=== PATIENT | male | born 1985 | race Two or more races ===

== ENCOUNTER 2023-06-05 19:18 | Inpatient (IN) | payer OTHER ==
[~2023-06-05] VITALS: Ht 170.2 cm; Wt 108.8 kg
[2023-06-05] MEDS ORDERED: VANCOMYCIN 1GM/250ML 250 ML IV ONE (19:45)
[2023-06-05 22:29] LABS: Basophils # (auto) 0 10 ^3/uL (0-0.2); Basophils % (auto) 0.3 % (0.0-2.0); Eosinophils # (auto) 0 10 ^3/uL (0-0.8); Eosinophils % (auto) 0.2 % (0.0-7.0); Hematocrit 48.8 % (41.0-53.0); Hemoglobin 16.4 g/dL (13.5-17.5); Lymphocytes # (auto) 2.1 10 ^3/uL (0.4-5.4); Lymphocytes % (auto) 22.2 % (10.0-50.0); Mean Corpuscular Hemoglobin 30.7 pg (28.0-32.0); Mean Corpuscular Hgb Conc. 33.6 g/dL (32.0-36.0); Mean Corpuscular Volume 91.2 fL (80.0-100.0); Monocytes # (auto) 0.8 10 ^3/uL (0-1.3); Monocytes % (auto) 8.3 % (0.0-12.0); Neutrophils # (auto) 6.6 10 ^3/uL (1.6-8.6); Nucleated Red Blood Cells % 0.1 %; Red Blood Cells 5.34 10^6/uL (4.5-5.90); Red Cell Distribution Width 13.6 % (11.8-14.3); White Blood Cell 9.6 10^3/uL (4.4-10.8)
[2023-06-05 22:51] LABS: Alanine Aminotransferase 33 U/L (7-40); Alkaline Phosphatase 81 U/L (46-116); Aspartate Aminotransferase 28 U/L (13-40); BUN/Creatinine Ratio 14.4 (10.0-20.0); Bilirubin, Total 0.9 mg/dL (0.2-1.0); Blood Urea Nitrogen 17 mg/dL (9-23); Calcium 9.5 mg/dL (8.7-10.4); Chloride 103 mmol/L (98-107); Glucose 104 mg/dL (74-106); Potassium 3.9 mmol/L (3.5-5.1); Sodium 135 mmol/L (136-145); Total Protein 8.3 g/dL (5.7-8.2)
[2023-06-05 22:57] LABS: Anion Gap 11 (5-15); Carbon Dioxide 21 mmol/L (20-30)
[2023-06-05] MEDS ORDERED: HYDROcodone-ACET 5/325MG TAB PO ONE (23:15)
[2023-06-06 01:10] VITALS: PULSE 96; RESP 12; O2SAT 96
[2023-06-06] MEDS ORDERED: ONDANSETRON HCL 4 MG/2 ML VIAL IV ONE (01:30)
[2023-06-06] MEDS ORDERED: MORPHINE SULFATE 4 MG/ML SYR/VIAL IV ONE (01:30)
[2023-06-06] MEDS: HYDROmorphone HCL 2 MG/ML VL/or syr IV PRN ×2 (04:26→21:50)
[2023-06-06 04:45] LABS: Basophils # (auto) 0 10 ^3/uL (0-0.2); Basophils % (auto) 0.3 % (0.0-2.0); Eosinophils # (auto) 0 10 ^3/uL (0-0.8); Eosinophils % (auto) 0.5 % (0.0-7.0); Hemoglobin 13.9 g/dL (13.5-17.5); Lymphocytes # (auto) 2.4 10 ^3/uL (0.4-5.4); Lymphocytes % (auto) 30.8 % (10.0-50.0); Mean Corpuscular Hemoglobin 31.3 pg (28.0-32.0); Mean Corpuscular Hgb Conc. 34.6 g/dL (32.0-36.0); Mean Corpuscular Volume 90.3 fL (80.0-100.0); Monocytes # (auto) 0.8 10 ^3/uL (0-1.3); Monocytes % (auto) 10.7 % (0.0-12.0); Neutrophils # (auto) 4.4 10 ^3/uL (1.6-8.6); Neutrophils % (auto) 57.7 % (37.0-80.0); Nucleated Red Blood Cells % 0.1 %; Red Blood Cells 4.43 10^6/uL (4.5-5.90); Red Cell Distribution Width 13.4 % (11.8-14.3); White Blood Cell 7.7 10^3/uL (4.4-10.8)
[2023-06-06] MEDS: PIPERACILLIN-TAZOB 3.375GM 100 ML IV SCH ×3 (05:46→21:40)
[2023-06-06] MEDS: ENOXAPARIN SOD 40 MG/0.4 ML SYRINGE SC SCH (11:24)
[2023-06-06] MEDS: PANTOPRAZOLE 40 MG TAB PO SCH ×2 (11:24→21:40)
[2023-06-06] MEDS ORDERED: VANCOMYCIN PER PHARMACY 0 MG IV SCH (17:15)
[2023-06-06] MEDS ORDERED: VANCOMYCIN 1GM/250ML 250 ML IV ONE (17:15)
[2023-06-06 20:47] LABS: Erythrocyte Sedimentation Rate 21 mm/hr (0-20)
[2023-06-06] MEDS: methylPREDNISolone SOD SUCC 40 MG/ML VL IV SCH (21:47)
[2023-06-07] VITALS: BP 124/79; PULSE 70; RESP 18; TEMP 97.6; O2SAT 98
[2023-06-07 05:00] VITALS: BP 114/69; PULSE 72; RESP 18; TEMP 98.3; O2SAT 96
[2023-06-07] MEDS ORDERED: VANCOMYCIN 1GM/250ML 250 ML IV ONE (05:00)
[2023-06-07] MEDS: PIPERACILLIN-TAZOB 3.375GM 100 ML IV SCH ×3 (06:24→23:00)
[2023-06-07] MEDS: methylPREDNISolone SOD SUCC 40 MG/ML VL IV SCH ×3 (06:24→23:00)
[2023-06-07 08:00] VITALS: BP 132/81; PULSE 71; RESP 20; TEMP 98; O2SAT 95
[2023-06-07] MEDS: ENOXAPARIN SOD 40 MG/0.4 ML SYRINGE SC SCH (09:21)
[2023-06-07] MEDS: PANTOPRAZOLE 40 MG TAB PO SCH ×2 (09:21→22:20)
[2023-06-07 13:03] VITALS: BP 118/78; PULSE 77; RESP 20; TEMP 98.3; O2SAT 92
[2023-06-07] MEDS ORDERED: BUPRENORPHINE -NALOXONE 8-2mg SL TAB SL ONE (14:30)
[2023-06-07] MEDS ORDERED: VANCOMYCIN 1GM/250ML 250 ML IV SCH (15:00)
[2023-06-07 16:00] VITALS: BP 126/82; PULSE 64; RESP 20; TEMP 98.4; O2SAT 98
[2023-06-07] MEDS: VANCOMYCIN 1GM/250ML 250 ML IV SCH (16:16)
[2023-06-08] VITALS (7 sets, daily range): BP systolic 102–133; BP diastolic 46–74; PULSE 57–87; RESP 14–18; TEMP 97.8–98.2; O2SAT 93–97
[2023-06-08 01:22] LABS: Chloride 106 mmol/L (98-107); Potassium 4.4 mmol/L (3.5-5.1); Sodium 137 mmol/L (136-145)
[2023-06-08 01:23] LABS: Anion Gap 8 (5-15); Calcium 9.1 mg/dL (8.7-10.4); Carbon Dioxide 23 mmol/L (20-30)
[2023-06-08 01:28] LABS: Blood Urea Nitrogen 13 mg/dL (9-23); Glucose 138 mg/dL (74-106)
[2023-06-08] MEDS: VANCOMYCIN 1GM/250ML 250 ML IV SCH ×3 (02:03→18:03)
[2023-06-08] MEDS: methylPREDNISolone SOD SUCC 40 MG/ML VL IV SCH ×3 (06:48→21:22)
[2023-06-08] MEDS: PIPERACILLIN-TAZOB 3.375GM 100 ML IV SCH ×3 (06:48→22:47)
[2023-06-08] MEDS: PANTOPRAZOLE 40 MG TAB PO SCH ×2 (09:37→21:20)
[2023-06-08] MEDS: ENOXAPARIN SOD 40 MG/0.4 ML SYRINGE SC SCH (09:37)
[2023-06-08] MEDS: MUPIROCIN 2% OINT 15gm or 22gm TOP SCH ×2 (15:10→21:23)
[2023-06-08] MEDS: HYDROcodone-ACET 5/325MG TAB PO PRN (21:20)
[2023-06-09] VITALS (8 sets, daily range): BP systolic 109–120; BP diastolic 60–69; PULSE 50–58; RESP 17–19; TEMP 97.8–98.3; O2SAT 96–98
[2023-06-09] MEDS: VANCOMYCIN 1GM/250ML 250 ML IV SCH ×3 (02:41→18:32)
[2023-06-09] MEDS: methylPREDNISolone SOD SUCC 40 MG/ML VL IV SCH ×3 (06:26→21:18)
[2023-06-09] MEDS: PIPERACILLIN-TAZOB 3.375GM 100 ML IV SCH ×2 (06:26→14:40)
[2023-06-09] MEDS: MUPIROCIN 2% OINT 15gm or 22gm TOP SCH ×2 (10:00→21:21)
[2023-06-09 10:06] LABS: Anti-Centromere B Antibody <0.2 AI (0.0-0.9); Anti-Jo-1 Antibody <0.2 AI (0.0-0.9); Anti-dsDNA Antibody 1 IU/mL (0-9); Antichromatin Antibody <0.2 AI (0.0-0.9); Antiscleroderma-70 Antibody <0.2 AI (0.0-0.9); RNP Antibody <0.2 AI (0.0-0.9); Sjogren's Anti-SS-A Antibody <0.2 AI (0.0-0.9); Sjogren's Anti-SS-B Antibody <0.2 AI (0.0-0.9); Smith Antibody <0.2 AI (0.0-0.9)
[2023-06-09] MEDS: ENOXAPARIN SOD 40 MG/0.4 ML SYRINGE SC SCH (10:40)
[2023-06-09] MEDS: PANTOPRAZOLE 40 MG TAB PO SCH ×2 (10:40→21:16)
[2023-06-09] MEDS: HYDROcodone-ACET 5/325MG TAB PO PRN ×2 (14:38→21:17)
[2023-06-10] VITALS: BP 111/69; PULSE 58; RESP 18; TEMP 98.3; O2SAT 96
[2023-06-10] MEDS: HYDROcodone-ACET 5/325MG TAB PO PRN ×4 (02:07→21:46)
[2023-06-10] MEDS: VANCOMYCIN 1GM/250ML 250 ML IV SCH ×2 (02:11→10:16)
[2023-06-10] MEDS: methylPREDNISolone SOD SUCC 40 MG/ML VL IV SCH ×3 (05:32→21:45)
[2023-06-10 05:34] VITALS: BP_SYST 113; BP_SYST 129; BP_DIAS 66; BP_DIAS 78; PULSE 47; PULSE 78; RESP 18; TEMP 98.9; O2SAT 94; O2SAT 97
[2023-06-10 08:00] VITALS: BP 133/80; PULSE 59; RESP 19; TEMP 97.2; O2SAT 93
[2023-06-10] MEDS: PANTOPRAZOLE 40 MG TAB PO SCH ×2 (10:16→21:45)
[2023-06-10] MEDS: ENOXAPARIN SOD 40 MG/0.4 ML SYRINGE SC SCH (10:16)
[2023-06-10] MEDS: MUPIROCIN 2% OINT 15gm or 22gm TOP SCH ×2 (10:17→22:12)
[2023-06-10 13:00] VITALS: BP 127/77; PULSE 51; RESP 18; TEMP 98.1; O2SAT 96
[2023-06-10] MEDS: CEFTRIAXONE SODIUM 2 GM in D5W 5% 100 ML IV SCH (15:34)
[2023-06-10 16:00] VITALS: BP 118/57; PULSE 57; RESP 19; TEMP 97.8; O2SAT 98
[2023-06-10 21:58] VITALS: BP 99/60; PULSE 60; RESP 19; TEMP 97.8; O2SAT 99
[2023-06-11] VITALS: BP 101/50; PULSE 53; RESP 19; TEMP 98.3; O2SAT 99
[2023-06-11] MEDS: VANCOMYCIN 1GM/250ML 250 ML IV SCH ×4 (00:17→23:43)
[2023-06-11 05:00] VITALS: BP 101/50; PULSE 53; RESP 19; TEMP 98.3; O2SAT 99
[2023-06-11 08:00] VITALS: BP 108/52; PULSE 65; RESP 16; TEMP 97.8; O2SAT 97
[2023-06-11 09:04] LABS: Chloride 102 mmol/L (98-107); Potassium 4.5 mmol/L (3.5-5.1); Sodium 139 mmol/L (136-145)
[2023-06-11 09:06] LABS: Anion Gap 7 (5-15); Calcium 8.3 mg/dL (8.5-10.1); Carbon Dioxide 30 mmol/L (20-30)
[2023-06-11 09:11] LABS: BUN/Creatinine Ratio 13.8 (10.0-20.0); Blood Urea Nitrogen 11 mg/dL (9-23); Glucose 86 mg/dL (74-106)
[2023-06-11 09:26] LABS: Hematocrit 47.3 % (41.0-53.0); Hemoglobin 15.8 g/dL (13.5-17.5); Mean Corpuscular Hemoglobin 30.7 pg (28.0-32.0); Mean Corpuscular Hgb Conc. 33.4 g/dL (32.0-36.0); Mean Corpuscular Volume 92.1 fL (80.0-100.0); Red Blood Cells 5.13 10^6/uL (4.5-5.90); Red Cell Distribution Width 13.1 % (11.8-14.3); White Blood Cell 9.7 10^3/uL (4.4-10.8)
[2023-06-11 09:32] LABS: Band Neutrophils % (manual) 0; Basophils % (manual) 0 (0.0-2.0); Blast Cells 0; Eosinophils % (manual) 0 (0-7); Promyelocytes % 0; Reactive Lymphocytes 0
[2023-06-11 09:48] LABS: INR 1.04 (0.9-1.15); Partial Thromboplastin Time 25.3 SEC (24.5-34.5); Prothrombin Time 10.9 sec (9.3-11.8)
[2023-06-11] MEDS: HYDROcodone-ACET 5/325MG TAB PO PRN ×3 (10:54→23:45)
[2023-06-11] MEDS: PANTOPRAZOLE 40 MG TAB PO SCH ×2 (10:54→22:18)
[2023-06-11] MEDS: ENOXAPARIN SOD 40 MG/0.4 ML SYRINGE SC SCH (10:55)
[2023-06-11] MEDS: methylPREDNISolone SOD SUCC 40 MG/ML VL IV SCH ×2 (10:55→22:18)
[2023-06-11 13:00] VITALS: BP 105/61; PULSE 53; RESP 18; TEMP 97.4; O2SAT 97
[2023-06-11] MEDS: MUPIROCIN 2% OINT 15gm or 22gm TOP SCH ×2 (13:14→22:18)
[2023-06-11] MEDS: CEFTRIAXONE SODIUM 2 GM in D5W 5% 100 ML IV SCH (13:15)
[2023-06-11 13:58] LABS: Lymphocytes % (manual) 16 (10.0-50.0); Metamyelocytes % 1; Monocytes % (manual) 10 (0-12); Myelocytes % 3; Platelet Estimate Adequate
[2023-06-11 17:00] VITALS: BP 109/65; PULSE 59; RESP 18; TEMP 98.3; O2SAT 94
[2023-06-11 22:00] VITALS: BP 101/68; PULSE 59; RESP 18; TEMP 98.7; O2SAT 95
[2023-06-12] VITALS (7 sets, daily range): BP systolic 95–143; BP diastolic 53–75; PULSE 49–72; RESP 12–19; TEMP 97.7–98.3; O2SAT 96–97
[2023-06-12] MEDS: HYDROcodone-ACET 5/325MG TAB PO PRN ×3 (04:26→20:56)
[2023-06-12] MEDS: VANCOMYCIN 1GM/250ML 250 ML IV SCH ×2 (08:34→16:26)
[2023-06-12] MEDS: PANTOPRAZOLE 40 MG TAB PO SCH ×2 (10:02→20:57)
[2023-06-12] MEDS: ENOXAPARIN SOD 40 MG/0.4 ML SYRINGE SC SCH (10:02)
[2023-06-12] MEDS: methylPREDNISolone SOD SUCC 40 MG/ML VL IV SCH (10:02)
[2023-06-12] MEDS: CEFTRIAXONE SODIUM 2 GM in D5W 5% 100 ML IV SCH (10:03)
[2023-06-12] MEDS: MUPIROCIN 2% OINT 15gm or 22gm TOP SCH ×2 (12:18→20:57)
[2023-06-12] MEDS ORDERED: methylPREDNISolone SOD SUCC 40 MG/ML VL IV SCH (13:30)
[2023-06-13] VITALS (7 sets, daily range): BP systolic 96–127; BP diastolic 52–78; PULSE 50–92; RESP 14–18; TEMP 98.3–99.1; O2SAT 94–99
[2023-06-13] MEDS: VANCOMYCIN 1GM/250ML 250 ML IV SCH ×3 (00:02→16:00)
[2023-06-13] MEDS: HYDROcodone-ACET 5/325MG TAB PO PRN ×3 (01:35→21:25)
[2023-06-13] MEDS: CEFTRIAXONE SODIUM 2 GM in D5W 5% 100 ML IV SCH (10:18)
[2023-06-13] MEDS: PANTOPRAZOLE 40 MG TAB PO SCH ×2 (10:19→21:06)
[2023-06-13] MEDS: ENOXAPARIN SOD 40 MG/0.4 ML SYRINGE SC SCH (10:20)
[2023-06-13] MEDS: methylPREDNISolone SOD SUCC 40 MG/ML VL IV SCH (10:20)
[2023-06-13] MEDS: MUPIROCIN 2% OINT 15gm or 22gm TOP SCH ×2 (10:22→21:06)
[2023-06-14] VITALS (7 sets, daily range): BP systolic 98–119; BP diastolic 45–70; PULSE 53–65; RESP 16–22; TEMP 98–98.2; O2SAT 93–96
[2023-06-14] MEDS: VANCOMYCIN 1GM/250ML 250 ML IV SCH ×3 (09:26→16:36)
[2023-06-14] MEDS: HYDROcodone-ACET 5/325MG TAB PO PRN ×3 (09:51→23:37)
[2023-06-14] MEDS: MUPIROCIN 2% OINT 15gm or 22gm TOP SCH ×2 (09:55→22:03)
[2023-06-14] MEDS: ENOXAPARIN SOD 40 MG/0.4 ML SYRINGE SC SCH (09:55)
[2023-06-14] MEDS: methylPREDNISolone SOD SUCC 40 MG/ML VL IV SCH (09:55)
[2023-06-14] MEDS: PANTOPRAZOLE 40 MG TAB PO SCH ×2 (09:55→21:58)
[2023-06-14] MEDS: CEFTRIAXONE SODIUM 2 GM in D5W 5% 100 ML IV SCH (11:36)
[2023-06-15] MEDS: VANCOMYCIN 1GM/250ML 250 ML IV SCH ×3 (01:08→17:00)
[2023-06-15 05:00] VITALS: BP 101/51; PULSE 58; RESP 18; TEMP 97.9; O2SAT 96
[2023-06-15 08:00] VITALS: PULSE 58; RESP 18; O2SAT 97
[2023-06-15 09:00] VITALS: BP 110/61; PULSE 63; RESP 18; TEMP 97.8; O2SAT 97
[2023-06-15] MEDS: PANTOPRAZOLE 40 MG TAB PO SCH (10:18)
[2023-06-15] MEDS: CEFTRIAXONE SODIUM 2 GM in D5W 5% 100 ML IV SCH (10:20)
[2023-06-15] MEDS: MUPIROCIN 2% OINT 15gm or 22gm TOP SCH (10:21)
[2023-06-15] MEDS: ENOXAPARIN SOD 40 MG/0.4 ML SYRINGE SC SCH (10:21)
[2023-06-15 13:00] VITALS: BP 113/61; PULSE 61; RESP 19; TEMP 97.6; O2SAT 94
[2023-06-15] MEDS ORDERED: BACDST PO (13:15)
[2023-06-15 15:37] VITALS: BP 110/61; PULSE 63; RESP 18; TEMP 97.8; O2SAT 97
[2023-06-15] MEDS: HYDROcodone-ACET 5/325MG TAB PO PRN (15:38)
[2023-06-15 17:00] VITALS: BP 128/79; PULSE 102; RESP 19; TEMP 98.2; O2SAT 94
== END 2023-06-15 21:50 | DRG 603 ==
LOC: EDBD 19:18 → EEVIPCON 19:18 → ER 19:18 → OVERFLOW 06-06 02:06 → WEST WING 06-06 18:07
PROVIDERS: ADMIT Specialist; ATTEND Internal Medicine
PROC: 05H933Z Insertion of Infusion Device into Right Brachial Vein, Percutaneous Approach (ICD-10-PCS; principal; 2023-06-14)
PROC: B54MZZA Ultrasonography of Right Upper Extremity Veins, Guidance (ICD-10-PCS; 2023-06-14)
DX: L03.116 Cellulitis of left lower limb (principal); L02.612 Cutaneous abscess of left foot; F17.210 Nicotine dependence, cigarettes, uncomplicated; Z86.718 Personal history of other venous thrombosis and embolism; Z86.19 Personal history of other infectious and parasitic diseases
CPT/HCPCS: 36415; 73700; 73721; 80048; 80053; 80202; 82565; 83516; 83880; 85007; 85025; 85027; 85610; 85652; 85730; 86141; 86225; 86235; 86703; 87040; 93306; 93971; G0378; J0696; J2405; J2543; J7060